=== PATIENT | female | born 1970 ===

== ENCOUNTER 2017-11-09 17:56 | Emergency (ER) | payer OTHER ==
[2017-11-09] MEDS ORDERED: Sodium Chloride 0.9% 1,000 ML IV STA (18:34)
--- NOTE | 2017-11-09 18:36 | ED PDOC ---
HPI: Abdomen Time Seen by Provider: 11/09/17 18:08 Chief Complaint (Nursing): Abdominal Pain Chief Complaint (Provider): Abdominal and Back Pain History/Exam Limitations: no limitations Onset/Duration Of Symptoms: Days (x12 days and x5 days) Associated Symptoms: Chills, Nausea Additional Complaint(s): 47 year old female with no significant past medical history presents to the ED with lower back pain pain onset 12 days ago and with dysuria and suprapubic pain onset 5 days. Patient took ibuprofen with minimal relief. She has nausea and chills, but denies fever, hematuria, frequency, vaginal discharge, vaginal bleeding, vomiting, diarrhea, constipation, trauma, night sweats, unintentional weight loss, pain to legs, or any other medical complaints. Patient reports she was experiencing vaginal itching that resolved after she took Monistat. PMD: Dr. Omar Andrade Abnormal Vaginal Bleeding: No Past Medical History Reviewed: Historical Data, Nursing Documentation, Vital Signs Vital Signs: Last Vital Signs Temp 98.5 F 11/09/17 18:03 Pulse 75 11/09/17 18:03 Resp 20 11/09/17 18:03 BP 139/70 11/09/17 18:03 Pulse Ox 100 11/09/17 20:52 - Medical History PMH: No Chronic Diseases - Surgical History Other surgeries: tubal ligation - Family History Family History: States: Hypertension - Social History Current smoker - smoking cessation education provided: No Ex-Smoker (has not smoked in the last 12 months): No Alcohol: None Drugs: Denies - Home Medications Home Medications: Ambulatory Orders Medication Instructions Recorded Ciprofloxacin HCl [Cipro] 500 mg PO BID #20 tab 11/09/17 Naproxen [Naprosyn] 1 tab PO BID PRN #30 tab 11/09/17 - Allergies Allergies/Adverse Reactions: Allergies Allergy/AdvReac Type Severity Reaction Status Date / Time No Known Allergies Allergy Verified 11/09/17 18:06 Review of Systems ROS Statement: Except As Marked, All Systems Reviewed And Found Negative Constitutional: Positive for: Chills Gastrointestinal: Positive for: Nausea, Abdominal Pain Musculoskeletal: Positive for: Back Pain (lower) Physical Exam - Reviewed Nursing Documentation Reviewed: Yes Vital Signs Reviewed: Yes - Physical Exam Appears: Positive for: Non-toxic, In Acute Distress (mild painful) Head Exam: Positive for: ATRAUMATIC, NORMOCEPHALIC Skin: Positive for: Normal Color, Warm, Dry Eye Exam: Positive for: EOMI, PERRL ENT: Negative for: Pharyngeal Erythema, Tonsillar Exudate Neck: Positive for: Painless ROM, Supple Cardiovascular/Chest: Positive for: Regular Rate, Rhythm. Negative for: Murmur Respiratory: Positive for: Normal Breath Sounds. Negative for: Respiratory Distress Gastrointestinal/Abdominal: Positive for: Tenderness (tenderness to palpation in suprapubic region ), Other (Negative McBurneys point tenderness and negative Randolph sign ). Negative for: Mass, Guarding, Rebound Back: Positive for: Other (mild tenderness to palpation in the lumbar paraspinal area, no midline tenderness to palpation ). Negative for: L CVA Tenderness, R CVA Tenderness Extremity: Positive for: Other (negative bilateral straight leg raise ) Lymphatic: Negative for: Adenopathy Neurologic/Psych: Positive for: Alert, Oriented (x3). Negative for: Motor/ Sensory Deficits - Laboratory Results Result Diagrams: 11/09/17 18:54 11/09/17 18:54 - ECG O2 Sat by Pulse Oximetry: 100 (RA) Pulse Ox Interpretation: Normal Medical Decision Making Medical Decision Making: Time: 18:08 Initial Impression: dysuria and lower back pain Differential diagnoses include but are not limited to: UTI, cystitis, pyelonephritis, musculoskeletal strain Initial Plan --Abd & Pelvis CT --CMP --Lact acid --CBC with differentials --Toradol 15 mg IVP --Urine culture --Urinalysis --Urine preg --Urine dip Time: 20:22 Abd [address] CT FINDINGS: Lung bases: Unremarkable. No mass. No consolidation. ABDOMEN: Liver: Unremarkable. Gallbladder and bile ducts: Unremarkable. No calcified stones. No ductal dilation. Pancreas: Unremarkable. No ductal dilation. Spleen: Unremarkable. No splenomegaly. Adrenals: Unremarkable. No mass. Kidneys and ureters: Unremarkable. No stones. No hydronephrosis. Stomach and bowel: Unremarkable. No obstruction. No mucosal thickening. PELVIS: Appendix: No findings to suggest acute appendicitis. Bladder: Unremarkable. No stones. Reproductive: Unremarkable as visualized. ABDOMEN and PELVIS: Intraperitoneal space: Unremarkable. No free air. No significant fluid collection. Bones/joints: No acute fracture. No dislocation. Soft tissues: Unremarkable. Vasculature: Unremarkable. No abdominal aortic aneurysm. Lymph nodes: Unremarkable. No enlarged lymph nodes. IMPRESSION: No acute obstructive or inflammatory process in the abdomen or pelvis. Labs c/w UTI, but otherwise no sepsis, renal insufficiency, electrolyte abnormality or any other clinically significant abnormalities that would warrant hospitalization or further ER management. DW pt findings and plan of care. Scribe Attestation: Documented by Corrine Oliveros, acting as a scribe for Genesis Evangelista MD Provider Scribe Attestation: All medical record entries made by the Scribe were at my direction and personally dictated by me. I have reviewed the chart and agree that the record accurately reflects my personal performance of the history, physical exam, medical decision making, and the department course for this patient. I have also personally directed, reviewed, and agree with the discharge instructions and disposition. Disposition - Clinical Impression Clinical Impression: Cystitis Counseled Patient/Family Regarding: Studies Performed, Diagnosis, Need For Followup, Rx Given - Disposition Referrals: Omar Andrade MD [Family Provider] - [facility] [place] [Outside] Disposition: Routine/Home Disposition Time: 21:00 Condition: IMPROVED Additional Instructions: LANDON MUCHOS SUEROS Y DACIA MEDICAMENTOS A RECETO REGRESA SI SIENTE PE[place]. VISITA FINCH DOCTOR EN 2-3 [place] A CHEQAR DE NUEVO. Prescriptions: Ciprofloxacin HCl [Cipro] 500 mg PO BID #20 tab Naproxen [Naprosyn] 1 tab PO BID PRN #30 tab PRN Reason: Pain Instructions: Acute Cystitis (DC) Forms: [employer] (Algerian), [facility] School/Work Excuse Print Language: ALBANIAN
[2017-11-09 19:05] LABS: BASO % 0.4 % (0.0-2.0); EOS # 0.1 K/uL (0.0-0.7); EOS % 0.6 % (0.0-4.0); HEMOGLOBIN 12.5 g/dL (12.0-16.0); LYMPH % 22.1 % (20.0-40.0); MEAN CELL VOLUME 85.7 fl (81.0-99.0); MEAN CORPUSCULAR HEMOGLOBIN 28.9 pg (27.0-31.0); MEAN CORPUSCULAR HGB CONC 33.7 g/dL (33.0-37.0); MONO # 0.7 K/uL (0.0-0.8); MONO % 8.1 % (0.0-10.0); NEUT # 6.3 K/uL (1.8-7.0); NEUT % 68.8 % (50.0-75.0); NRBC % 0.1 % (0.0-0.0); RBC 4.34 Mil/uL (3.80-5.20); RED CELL DISTRIBUTION WIDTH 14.1 % (11.5-14.5); WHITE BLOOD COUNT 9.2 K/uL (4.8-10.8)
[2017-11-09 19:17] LABS: ALB/GLOB RATIO 1.4 (1.0-2.1); ALBUMIN 4.1 g/dL (3.5-5.0); ALT/SGPT 34 U/L (9-52); AST/SGOT 21 U/L (14-36); BLOOD UREA NITROGEN 8 mg/dl (7-17); GFR AFRICAN-AMERICAN > 60; GFR NON-AFRICAN AMERICAN > 60; SQUAMOUS EPITHIAL 1 /hpf (0-5); URINE BACTERIA RARE (<OCC); URINE BILIRUBIN NEGATIVE (NEGATIVE); URINE BLOOD SMALL (NEGATIVE); URINE CLARITY CLOUDY (Clear); URINE COLOR YELLOW (YELLOW); URINE GLUCOSE (UA) NEG (Normal); URINE LEUKOCYTE ESTERASE LARGE Leu/uL (Negative); URINE PROTEIN 30 mg/dL (NEGATIVE); URINE UROBILINOGEN 0.2-1.0 mg/dL (0.2-1.0); WBC CLUMPS MOD /hpf
[2017-11-09] MEDS ORDERED: Ciprofloxacin 400mg/200ml D5W 400 MG/200 ML BAG IV STA (21:13)
[2017-11-09 21:40] VITALS: BP 131/76; PULSE 76; RESP 17; TEMP 98.3; O2SAT 98
--- NOTE | 2017-11-10 08:59 | CT ---
Date of service: 11/09/2017 PROCEDURE: CT Abdomen and Pelvis without intravenous contrast HISTORY: back pain dysuria possible pyelo v stone COMPARISON: None. TECHNIQUE: Without contrast.. Contrast dose: 0 Radiation dose: Total exam DLP = 293.62 mGy-cm. This CT exam was performed using one or more of the following dose reduction techniques: Automated exposure control, adjustment of the mA and/or kV according to patient size, and/or use of iterative reconstruction technique. FINDINGS: LOWER THORAX: Unremarkable. LIVER: Unremarkable. No gross lesion or ductal dilatation. GALLBLADDER AND BILE DUCTS: Unremarkable. PANCREAS: Unremarkable. No gross lesion or ductal dilatation. SPLEEN: Unremarkable. ADRENALS: Unremarkable. No mass. KIDNEYS AND URETERS: Unremarkable. No hydronephrosis. No solid mass. No renal or ureteral calculus. VASCULATURE: Unremarkable. No aortic aneurysm. BOWEL: Unremarkable. No obstruction. No gross mural thickening. APPENDIX: Unremarkable. Normal appendix. PERITONEUM: Unremarkable. No free fluid. No free air. LYMPH NODES: Unremarkable. No enlarged lymph nodes. BLADDER: Unremarkable. REPRODUCTIVE: Normal uterus BONES: No acute fracture. OTHER FINDINGS: None. IMPRESSION: Unremarkable abdominal/pelvic CT examination. No evidence of urinary calculus or urinary tract obstruction. Please note that this evaluation is grossly limited for evaluation of pyelonephritis due to the absence of intravenous contrast administration. The preliminary findings for this examination were reported by [facility] at 8:22 p.m. on 11/09/2017. There is concurrence of this report with the preliminary findings.
== END 2017-11-09 21:40 | disposition home or self-care (01) ==
LOC: H.ER 17:56
DX: N30.90 Cystitis, unspecified without hematuria (principal)
CPT/HCPCS: 74176; 80053; 81003; 81025; 83605; 85025; 87086; 96360; 96374; 99283; J1885; J7030